=== PATIENT | female | born 1995 | race Two or more races ===

== ENCOUNTER 2022-09-10 12:21 | Emergency (ER) | payer MEDICAID ==
[~2022-09-10] VITALS: Ht 152.4 cm; Wt 80.5 kg
[2022-09-10 12:22] VITALS: BP 113/70
== END 2022-09-10 14:31 | disposition home or self-care (01) ==
LOC: ER 12:21
DX: J02.9 Acute pharyngitis, unspecified (principal)
CPT/HCPCS: 87081; 87880; 99283